=== PATIENT | female | born 1950 | race Caucasian/White ===

== ENCOUNTER → 2017-04-12 | Outpatient (CLI) | payer OTHER ==
--- NOTE | 2017-04-12 16:50 | BD ---
EXAMINATION TYPE: MG DEXA axial skeleton. DATE OF EXAM: 04/12/2017 COMPARISON: NONE CLINICAL HISTORY: 66-year-old female asymptomatic postmenopausal state Height: 5 4 1/2 IN Weight: 210 FRAX RISK QUESTIONS: Alcohol (3 or more units per day): NO Family History (Parent hip fracture): NO Glucocorticoids (More than 3mos): NO (Ex: prednisone, prednisolone, methylprednisolone, dexamethasone, and hydrocortisone). History of Fracture in Adulthood: YES Secondary Osteoporosis: 1. Type 1 Diabetes: NO 2. Hyperthyroidism: NO 3. Menopause before 45: NO 4. Malnutrition: NO 5. Chronic liver disease: NO Rheumatoid Arthritis: NO Current Tobacco Use: NO RISK FACTORS HISTORY OF: Spine Fracture: LUMBAR When: 5 YEARS AGO History of Wrist Fracture: LT WRIST When: 2015 Surgery to Spine/Hip(right/left)/Wrist (right/left): LT WRIST When: 2014 Family History of Osteoporosis: NO Active: YES Postmenopausal woman: AGE 56 MEDICATIONS: Additional Medications: NONE Additional History: EXAM MEASUREMENTS: Bone mineral densitometry was performed using the [employer] ([employer]) System. Bone mineral density as measured about the Lumbar spine is: ----- L1-L4(G/cm2): 1.101 T Score Values are as follows: ----- L2: -0.7 ----- L3: -0.6 ----- L4: -1.3 ----- L1-L4: -0.7 BASELINE Bone mineral density about the R hip (g/cm2): 0.790 Bone mineral density about the L hip (g/cm2): 0.827 T Score values are as follows: -----R Neck: -1.8 -----L Neck: -1.5 -----R Total: -0.5 -----L Total: -0.4 BASELINE IMPRESSION: Osteopenia (T Score between -2.5 and -1 as noted by T score values There is slightly increased risk of fracture and the patient may be considered for treatment. Re-Screen 2-5 years. NOTE: T-SCORE=SD OF THE YOUNG ADULT MEAN.
== END | disposition home or self-care (01) ==
LOC: RADBDWWP 07:24
PROVIDERS: ATTEND Family Medicine
DX: M85.80 Other specified disorders of bone density and structure, unspecified site (principal); Z78.0 Asymptomatic menopausal state
CPT/HCPCS: 77080

== ENCOUNTER 2018-05-03 11:53 | Emergency (ER) | payer OTHER, MEDICARE ==
--- NOTE | 2018-05-03 12:25 | ED ---
General Adult HPI - General Chief complaint: Abdominal Pain Stated complaint: Bowel problems Time Seen by Provider: 05/03/18 12:19 Source: patient, RN notes reviewed Mode of arrival: ambulatory Limitations: no limitations - History of Present Illness Initial comments: 67-year-old female with a past medical history of DVT, GERD presents to the emergency department for a chief complaint of left lower abdominal pain 3 days. Patient states pain has improved somewhat since it first started. Patient states she thought she had a urinary tract infection so went to the clinic and urine did not show infection. Patient states they were concerned for diverticulitis as sent her to the emergency department. Patient states her bowel movements have been normal and her last bowel movement was this morning, soft in consistency. She denies any melena or hematochezia. Patient denies any dysuria, urinary urgency, urinary frequency. Patient does have a history of appendectomy. No prior history of diverticulitis. Patient has no other complaints at this time including shortness of breath, chest pain, nausea or vomiting, headache, or visual changes. - Related Data Home Medications Medication Instructions Recorded Confirmed Atorvastatin [Lipitor] 10 mg PO HS 05/03/18 05/03/18 Previous Rx's Medication Instructions Recorded Ciprofloxacin HCl [Cipro] 500 mg PO Q12HR 10 Days tablet 05/03/18 metroNIDAZOLE [Flagyl] 500 mg PO TID 10 Days tab 05/03/18 Allergies Allergy/AdvReac Type Severity Reaction Status Date / Time steroids Allergy Nausea & Uncoded 05/03/18 11:57 Vomiting, "felt like a hangover" Review of Systems ROS Statement: Those systems with pertinent positive or pertinent negative responses have been documented in the HPI. ROS Other: All systems not noted in ROS Statement are negative. Past Medical History Past Medical History: Deep Vein Thrombosis (DVT), GERD/Reflux Additional Past Medical History / Comment(s): DVT leg 2002, hx. fx. back 7-8 yrs. ago History of Any Multi-Drug Resistant Organisms: None Reported Past Surgical History: Orthopedic Surgery, Tubal Ligation Additional Past Surgical History / Comment(s): arthroscopy knee, ORIF left wrist & ankle Past Anesthesia/Blood Transfusion Reactions: No Reported Reaction Past Psychological History: No Psychological Hx Reported Smoking Status: Never smoker Past Alcohol Use History: Occasional Past Drug Use History: None Reported - Past Family History Sister(s) Family Medical History: Cancer General Exam Limitations: no limitations General appearance: alert, in no apparent distress Head exam: Present: atraumatic, normocephalic, normal inspection Eye exam: Present: normal appearance, PERRL, EOMI. Absent: scleral icterus, conjunctival injection, periorbital swelling ENT exam: Present: normal exam, mucous membranes moist Neck exam: Present: normal inspection, full ROM. Absent: tenderness, meningismus, lymphadenopathy Respiratory exam: Present: normal lung sounds bilaterally. Absent: respiratory distress, wheezes, rales, rhonchi, stridor Cardiovascular Exam: Present: regular rate, normal rhythm, normal heart sounds. Absent: systolic murmur, diastolic murmur, rubs, gallop, clicks GI/Abdominal exam: Present: soft, tenderness (Tenderness noted to the left lower quadrant without rebound or guarding, no upper abdominal tenderness, no right lower quadrant tenderness, no suprapubic tenderness.), normal bowel sounds. Absent: distended, guarding, rebound, rigid Neurological exam: Present: alert, oriented X3, CN II-XII intact Psychiatric exam: Present: normal affect, normal mood Course Vital Signs 05/03/18 05/03/18 05/03/18 11:58 13:50 15:46 Temperature 98 F 98.2 F Pulse Rate 74 75 84 Respiratory 16 18 18 Rate Blood Pressure 148/93 141/82 151/82 O2 Sat by Pulse 98 98 97 Oximetry Medical Decision Making - Medical Decision Making 67-year-old female with a past medical history of DVT, GERD presents to the emergency department for a chief complaint of left lower abdominal pain 2 days. Patient states pain is improved somewhat since it first started. However she was seen today at urgent care and they were concerned for diverticulitis so sent her in. She denies fevers or chills. She denies noticing any blood in the stool. On exam patient does have left lower quadrant tenderness without rebound or guarding, no tenderness noted elsewhere. CBC and CMP are unremarkable. Urine does not show any evidence of infection. CT shows mild diverticulitis in the distal descending colon. Patient states she would like to try outpatient therapy. Patient was given Flagyl and Cipro by mouth in the emergency department. She was given a prescription for both. She was educated to consume a high-fiber diet. She will follow up with GI, referral given. She will return if she has any worsening symptoms or severe pain to his discussed with her. - Lab Data Result diagrams: 05/03/18 12:54 05/03/18 12:54 Lab Results 05/03/18 05/03/18 05/03/18 Range/Units 12:54 12:54 13:40 WBC 8.2 (3.8-10.6) k/uL RBC 4.66 (3.80-5.40) m/uL Hgb 13.7 (11.4-16.0) gm/dL Hct 42.1 (34.0-46.0) % MCV 90.3 (80.0-100.0) fL MCH 29.3 (25.0-35.0) pg MCHC 32.5 (31.0-37.0) g/dL RDW 13.1 (11.5-15.5) % Plt Count 355 (150-450) k/uL Neutrophils % 74 % Lymphocytes % 19 % Monocytes % 4 % Eosinophils % 2 % Basophils % 0 % Neutrophils # 6.1 (1.3-7.7) k/uL Lymphocytes # 1.6 (1.0-4.8) k/uL Monocytes # 0.3 (0-1.0) k/uL Eosinophils # 0.1 (0-0.7) k/uL Basophils # 0.0 (0-0.2) k/uL Sodium 140 (137-145) mmol/L Potassium 4.9 (3.5-5.1) mmol/L Chloride 105 (98-107) mmol/L Carbon Dioxide 27 (22-30) mmol/L Anion Gap 8 mmol/L BUN 18 H (7-17) mg/dL Creatinine 0.76 (0.52-1.04) mg/dL Est GFR (CKD-EPI)AfAm >90 (>60 ml/min/1.73 sqM) Est GFR (CKD-EPI)NonAf 83 (>60 ml/min/1.73 sqM) Glucose 96 (74-99) mg/dL Calcium 10.0 (8.4-10.2) mg/dL Total Bilirubin 0.6 (0.2-1.3) mg/dL AST 26 (14-36) U/L ALT 29 (9-52) U/L Alkaline Phosphatase 80 (38-126) U/L Total Protein 7.2 (6.3-8.2) g/dL Albumin 4.4 (3.5-5.0) g/dL Amylase 31 (30-110) U/L Lipase 58 (23-300) U/L Urine Color Light Yellow Urine Appearance Clear (Clear) Urine pH 6.5 (5.0-8.0) Ur Specific [place] 1.010 (1.001-1.035) Urine Protein Negative (Negative) Urine Glucose (UA) Negative (Negative) Urine Ketones 1+ H (Negative) Urine Blood Negative (Negative) Urine Nitrite Negative (Negative) Urine Bilirubin Negative (Negative) Urine Urobilinogen <2.0 (<2.0) mg/dL Ur Leukocyte Esterase Small H (Negative) Urine RBC <1 (0-5) /hpf Urine WBC 2 (0-5) /hpf Urine Mucus Rare H (None) /hpf Disposition Clinical Impression: Diverticulitis Disposition: HOME SELF-CARE Condition: Good Instructions: Diverticulitis (ED) Additional Instructions: Please take antibiotics as directed. Follow-up with GI in 1-2 days. Return to the emergency department for worsening symptoms. Prescriptions: Ciprofloxacin HCl [Cipro] 500 mg PO Q12HR 10 Days tablet metroNIDAZOLE [Flagyl] 500 mg PO TID 10 Days tab Is patient prescribed a controlled substance at d/c from ED?: No Referrals: Bobby Gamez MD [Primary Care Provider] - 1-2 days Arturo Lora MD [STAFF PHYSICIAN] - 1-2 days Time of Disposition: 15:25
[2018-05-03] MEDS ORDERED: SODIUM CHLORIDE 0.9% 1,000 ML IV STA (12:31)
[2018-05-03 13:22] LABS: Basophils % (A) 0 %; Eosinophils # (A) 0.1 k/uL (0-0.7); Eosinophils % (A) 2 %; HCT 42.1 % (34.0-46.0); HGB 13.7 gm/dL (11.4-16.0); Lymphocytes # (A) 1.6 k/uL (1.0-4.8); Lymphocytes % (A) 19 %; MCH 29.3 pg (25.0-35.0); MCHC 32.5 g/dL (31.0-37.0); MCV 90.3 fL (80.0-100.0); Monocytes # (A) 0.3 k/uL (0-1.0); Monocytes % (A) 4 %; Neutrophils # (A) 6.1 k/uL (1.3-7.7); Neutrophils % (A) 74 %; Platelet Count 355 k/uL (150-450); RBC 4.66 m/uL (3.80-5.40); RDW 13.1 % (11.5-15.5); WBC 8.2 k/uL (3.8-10.6)
[2018-05-03 13:36] LABS: Albumin 4.4 g/dL (3.5-5.0); Amylase 31 U/L (30-110); Anion Gap 8 mmol/L; Blood Urea Nitrogen 18 mg/dL (7-17); Carbon Dioxide 27 mmol/L (22-30); Chloride 105 mmol/L (98-107); Glucose 96 mg/dL (74-99); Lipase 58 U/L (23-300); Sodium 140 mmol/L (137-145); Total Bilirubin 0.6 mg/dL (0.2-1.3); Total Protein 7.2 g/dL (6.3-8.2)
[2018-05-03 13:44] LABS: ALT 29 U/L (9-52); AST 26 U/L (14-36); Potassium 4.9 mmol/L (3.5-5.1)
[2018-05-03 13:45] LABS: Alkaline Phosphatase 80 U/L (38-126)
[2018-05-03 14:00] VITALS: RESP 18
[2018-05-03 14:31] LABS: Appearance,Urine Clear (Clear); Bilirubin,Urine Negative (Negative); Blood,Urine Negative (Negative); Color,Urine Light Yellow; Glucose,Urine (UA) Negative (Negative); Ketones,Urine 1+ (Negative); Leukocyte Esterase,Urine Small (Negative); Mucus,Urine Rare /hpf; Nitrite,Urine Negative (Negative); PH, Urine 6.5 (5.0-8.0); Protein,Urine Negative (Negative); RBC,Urine <1 /hpf (0-5); Urobilinogen,Urine <2.0 mg/dL (<2.0); WBC,Urine 2 /hpf (0-5)
--- NOTE | 2018-05-03 14:37 | CT ---
EXAMINATION TYPE: CT abdomen pelvis w con DATE OF EXAM: 05/03/2018 COMPARISON: None INDICATION: Diverticulitis DLP: 791.4 mGycm, Automated exposure control for dose reduction was used. CONTRAST: 100 ml mL of Isovue 300. Study performed without Oral Contrast TECHNIQUE: Axial images were obtained from above the diaphragm to the pubic rami in the axial plane a t 5 mm thick sections. Reconstructed images are reviewed on the computer in the coronal plane. FINDINGS: Limited CT sections are obtained the lung bases. The lung bases are clear. CT ABDOMEN: Liver: Normal Spleen: Normal Pancreas: Normal Adrenal glands: The adrenal glands are normal. Gallbladder: Normal Kidneys: No masses are evident. No hydronephrosis is present. No cysts are present. Delayed images were obtained through the kidneys, which remain unremarkable. Aorta: Vascular calcification is within the aorta. Inferior vena cava: Normal. CT PELVIS: Some mild inflammatory changes adjacent to the distal descending colon. Correlate for mild diverticul itis. No suspicious abscess formation or phlegmon is evident. Additional diverticulosis within the si gmoid colon. There are loops of bowel which are incompletely distended or lack oral contrast limiting their evaluation. Appendix: Surgically absent. Urinary bladder: Normal. Genitourinary structures: Uterus is unremarkable. Adnexal regions are normal. Osseous structures: No suspicious lytic or sclerotic lesions. IMPRESSIONS: 1. Mild diverticulitis distal descending colon.
[2018-05-03] MEDS ORDERED: CIPROFLOXACIN HCL 500 MG TAB PO STA (15:21)
[2018-05-03] MEDS ORDERED: metroNIDAZOLE 500 MG TAB PO STA (15:21)
[2018-05-03 15:49] VITALS: BP 151/82; PULSE 84; TEMP 98.2
== END 2018-05-03 15:49 | disposition home or self-care (01) ==
LOC: EC 11:53
DX: K57.32 Diverticulitis of large intestine without perforation or abscess without bleeding (principal); Z88.8 Allergy status to other drugs, medicaments and biological substances; Z79.899 Other long term (current) drug therapy; Z90.49 Acquired absence of other specified parts of digestive tract
CPT/HCPCS: 36415; 80053; 82150; 83690; 85025; 81001; 87040; 74177; 99284; 96360; 96361 ×2; Q9967

== ENCOUNTER 2018-06-06 12:06 | Day surgery (SDC) | payer MEDICARE, OTHER ==
[2018-06-01 14:00] VITALS: BMI 29.9
[~2018-06-06 12:06] MED LIST: LACTATED RINGERS 1,000 ML IV SCH; LIDOCAINE 1% 20 ML VIAL (10MG/ML) FOR IV START INTRADERMA PRN
[2018-06-06 12:42] VITALS: RESP 16; TEMP 98.3
[2018-06-06] MEDS ORDERED: PROPOFOL 10 MG/ML 20 ML VIAL IV ONE (13:00)
[2018-06-06] MEDS ORDERED: LIDOCAINE 1% INJ 10MG/ML (20 ML MDV) ONE (13:00)
--- NOTE | 2018-06-06 13:29 | P.PCN ---
Date of Procedure: 06/06/18 Procedure(s) Performed: Procedure: Total colonoscopy. Preoperative diagnosis: History of diverticulitis. Postoperative diagnosis: 1. Diverticulosis with no evidence of acute diverticulitis or strictures. 2. Poor preparation but no obvious polyps or tumors. Preparation: HalfLytely prep. Sedation: Was provided by anesthesia. Brief clinical history: The patient is a 67-year-old female who is scheduled for this evaluation because of recent episodes of diverticulitis. She had prior colonoscopies at age 51 and 61. This evaluation is to rule out neoplasia or complicated diverticular disease. Procedure: With the patient on her left lateral decubitus position and after informed consent and adequate sedation, the perianal area was inspected and it did not show any fissures or fistulas. There were no masses felt on digital rectal examination. The Olympus CFH 190L video colonoscope was then inserted in the rectum in the usual fashion and advanced to the cecum. Unfortunately, the preparation was poor. Multiple diverticular orifices were seen scattered along the length of the bowel more on the left side with no evidence of acute diverticulitis or strictures. The mucosa appeared healthy. There were no obvious polyps or tumors. The poor preparation would preclude identifying small polyps or superficial pathology. I retroflexed the endoscope in the rectum before the endoscope was withdrawn. The patient tolerated the procedure well. Plan: The patient was reassured. Discussed dietary measures. Because of the poor preparation today, I suggested that we stay with the schedule for repeat colonoscopy in 3-4 years.
[2018-06-06 13:44] VITALS: BP 137/73; PULSE 64
== END 2018-06-06 14:07 | disposition home or self-care (01) ==
LOC: ORWHC2ENDO 12:06
DX: K57.30 Diverticulosis of large intestine without perforation or abscess without bleeding (principal); Z87.19 Personal history of other diseases of the digestive system; K21.9 Gastro-esophageal reflux disease without esophagitis; E78.5 Hyperlipidemia, unspecified; Z86.718 Personal history of other venous thrombosis and embolism; Z88.8 Allergy status to other drugs, medicaments and biological substances; Z79.82 Long term (current) use of aspirin; Z79.899 Other long term (current) drug therapy
CPT/HCPCS: 45378; J2001; J2704

== ENCOUNTER 2024-04-04 08:19 | Day surgery (SDC) | payer MEDICARE, OTHER ==
[2024-03-31 15:53] VITALS: BMI 30.1
[2024-04-04 09:03] VITALS: RESP 16; TEMP 98
[2024-04-04] MEDS: IV FLUID CONTINUATION 1,000 ML IV ONE (09:33)
[2024-04-04] MEDS: LACTATED RINGERS 1,000 ML IV SCH (09:34)
[2024-04-04] MEDS ORDERED: PROPOFOL 10 MG/ML 20 ML VIAL IV ONE (09:52)
--- NOTE | 2024-04-04 10:15 | P.PCN ---
Date of Procedure: 04/04/24 Procedure(s) Performed: BRIEF HISTORY: Patient is a 73-year-old pleasant white female scheduled for an elective colonoscopy as a part of screening for colon cancer. PROCEDURE PERFORMED: Colonoscopy. PREOPERATIVE DIAGNOSIS: Screening for colon cancer. IV sedation per Anesthesia. PROCEDURE: After informed consent was obtained, the patient, was brought into the endoscopy unit. IV sedation was administered by Anesthesia under continuous monitoring. Digital rectal examination was normal. Initially the Olympus CF-160 flexible video colonoscope was then inserted in the rectum, gradually advanced into the cecum without any difficulty. Careful examination was performed as the scope was gradually being withdrawn. Ileocecal valve and the appendiceal orifice were visualized and appeared normal. Prep was excellent. Mucosa of the cecum, ascending colon, transverse colon, descending colon, sigmoid colon, and rectum appeared normal. Scattered left-sided diverticula retroflexion was performed in the rectum and no lesions were seen. The patient tolerated the procedure well. IMPRESSION: Normal-appearing colon from rectum to cecum with no evidence of colorectal neoplasia. Scattered left-sided diverticulosis. RECOMMENDATIONS: Findings of this examination were discussed with the patient as well as her family. She was advised to have repeat screening colonoscopy in 10 years..
[2024-04-04 10:33] VITALS: BP 162/90; PULSE 51
== END 2024-04-04 10:50 | disposition home or self-care (01) ==
LOC: ORWHC2ENDO 08:19
PROVIDERS: ATTEND Internal Medicine Gastroenterology
DX: Z12.11 Encounter for screening for malignant neoplasm of colon (principal); K57.30 Diverticulosis of large intestine without perforation or abscess without bleeding; E78.5 Hyperlipidemia, unspecified; K21.9 Gastro-esophageal reflux disease without esophagitis; M54.50 Low back pain, unspecified; R41.3 Other amnesia; Z88.8 Allergy status to other drugs, medicaments and biological substances; Z79.82 Long term (current) use of aspirin
CPT/HCPCS: J2704; G0121; 45378

== ENCOUNTER 2024-11-09 17:56 | Inpatient (IN) | payer MEDICARE ==
--- NOTE | 2024-11-09 18:15 | ED ---
General Adult HPI - General Chief complaint: Neuro Symptoms/Deficit Stated complaint: cant talk Time Seen by Provider: 11/09/24 18:02 Source: patient, family, RN notes reviewed Mode of arrival: ambulatory Limitations: no limitations - History of Present Illness Initial comments: Patient is a 74-year-old female with history of Alzheimer's with concerns for difficulty talking. Symptoms were noticed to half an hour prior to arrival by when he came in from the garage. Patient last known to be normal at 5 PM. Patient had difficulty talking. Patient seemed off balance when she tried to get up. No history of similar symptoms previously. Patient is not on blood thinners. Speech was garbled. Speech has improved since that time however not returned to normal. - Related Data Home Medications Medication Instructions Recorded Confirmed Aspirin 81 mg PO DAILY 06/01/18 04/04/24 Allergies Allergy/AdvReac Type Severity Reaction Status Date / Time steroids Allergy Nausea & Uncoded 11/09/24 18:01 Vomiting, "felt like a hangover" Review of Systems ROS Statement: Those systems with pertinent positive or pertinent negative responses have been documented in the HPI. ROS Other: All systems not noted in ROS Statement are negative. Constitutional: Denies: fever Eyes: Denies: eye pain ENT: Denies: ear pain Respiratory: Denies: dyspnea Neurological: Reports: as per HPI. Denies: headache Past Medical History Past Medical History: Deep Vein Thrombosis (DVT), GERD/Reflux, Hyperlipidemia Additional Past Medical History / Comment(s): DVT leg 2002, hx. fx. back 7-8 yrs. ago, states patient has memory issues for last couple years, but not diagnosed with anything. History of Any Multi-Drug Resistant Organisms: None Reported Past Surgical History: Orthopedic Surgery, Tubal Ligation Additional Past Surgical History / Comment(s): arthroscopy knee, ORIF left wrist & ankle Past Anesthesia/Blood Transfusion Reactions: No Reported Reaction, Motion Sickness Additional Past Anesthesia/Blood Transfusion Reaction / Comment(s): no blood transfusion Past Psychological History: No Psychological Hx Reported Smoking Status: Never smoker Past Alcohol Use History: Occasional Past Drug Use History: None Reported - Past Family History Sister(s) Family Medical History: Cancer Additional Family Medical History / Comment(s): breast General Exam Limitations: no limitations General appearance: alert, in no apparent distress Head exam: Present: atraumatic Eye exam: Present: normal appearance, PERRL, EOMI ENT exam: Present: normal oropharynx Neck exam: Present: normal inspection Respiratory exam: Present: normal lung sounds bilaterally Cardiovascular Exam: Present: regular rate, normal rhythm GI/Abdominal exam: Present: soft. Absent: tenderness Extremities exam: Present: normal inspection Neurological exam: Present: alert, CN II-XII intact Expanded Neurological exam: Present: protecting the airway Patient oriented to: Present: person. Absent: place ( states normal), time ( states likely normal) Cranial nerves: EOM's Intact: Normal, Nystagmus: Normal Sensory exam: Upper Extremity Light Touch: Normal, Lower Extremity Light Touch: Normal Motor strength exam: RUE: 5, LUE: 5, RLE: 5, LLE: 5 Eye Response: (4) open spontaneously Motor Response: (6) obeys commands Verbal Response: (5) oriented Psychiatric exam: Present: normal affect, normal mood Skin exam: Present: normal color Course Vital Signs 11/09/24 11/09/24 11/09/24 17:58 18:13 18:43 Temperature 98.0 F 97.9 F 97.9 F Pulse Rate 75 60 60 Respiratory 18 16 16 Rate Blood Pressure 114/75 135/82 134/74 O2 Sat by Pulse 95 99 97 Oximetry 11/09/24 18:57 Temperature 97.5 F L Pulse Rate 58 L Respiratory 16 Rate Blood Pressure 125/62 O2 Sat by Pulse 98 Oximetry EKG Findings - EKG Results: EKG: interpreted by ERMD (Left axis. Poor R wave progression. LVH criteria.), sinus rhythm, normal ST/T Medical Decision Making - Medical Decision Making [address] Montero. Patient is felt not to be a candidate for tenecteplase secondary to improvement of symptoms and mild NIH. Risks felt to outweigh the benefits. Was pt. sent in by a medical professional or institution (, PA, FOXER, urgent care, hospital, or fdc...) When possible be specific @ -No Did you speak to anyone other than the patient for history (EMS, parent, family, police, friend...)? What history was obtained from this source @ - is present helps provide history as patient has speech difficulty and has Alzheimer's Did you review nursing and triage notes (agree or disagree)? Why? @ -I reviewed and agree with nursing and triage notes Were old charts reviewed (outside hosp., previous admission, EMS record, old EKG, old radiological studies, urgent care reports/EKG's, fdc records)? Report findings @ -No old charts were reviewed Differential Diagnosis (chest pain, altered mental status, abdominal pain women, abdominal pain men, vaginal bleeding, weakness, fever, dyspnea, syncope, headache, dizziness, GI bleed, back pain, seizure, CVA, palpatations, mental health, musculoskeletal)? @ -Differential Weakness: Hypoglycemia, shock, sepsis, hyponatremia, anemia, infection, CT, ETOH, adverse medicine reaction, overdose, stroke, this is not meant to be an all-inclusive list. EKG interpreted by me (3pts min.). @ -As above X-rays interpreted by me (1pt min.). @ -Chest x-ray does not reveal acute abnormality CT interpreted by me (1pt min.). @ -CT scan of the brain without acute abnormality U/S interpreted by me (1pt. min.). @ -None done What testing was considered but not performed or refused? (CT, X-rays, U/S, labs)? Why? @ -None What meds were considered but not given or refused? Why? @ -None Did you discuss the management of the patient with other professionals (professionals i.e. , PA, FOXER, lab, RT, psych nurse, licensed master social worker, impregnating machine operator, teacher, fire management officer, leather case finisher)? Give summary @ -Case discussed with Dr. Sharp will admit covering Dr. Milligan 9 Was smoking cessation discussed for >3mins.? @ -No Was critical care preformed (if so, how long)? @ -No Were there social determinants of health that impacted care today? How? (Homelessness, low income, unemployed, alcoholism, drug addiction, transporta tion, low edu. Level, literacy, decrease access to med. care, care home, rehab)? @ -No Was there de-escalation of care discussed even if they declined (Discuss DNR or withdrawal of care, Hospice)? DNR status @ -No What co-morbidities impacted this encounter? (DM, HTN, Smoking, COPD, CAD, Cancer, CVA, ARF, Chemo, Hep., AIDS, mental health diagnosis, sleep apnea, morbid obesity)? @ -None Was patient admitted / discharged? Hospital course, mention meds given and route, prescriptions, significant lab abnormalities, going to OR and other pertinent info. @ -Patient presents with acute stroke symptoms. Symptoms are improved with only mild speech difficulty on evaluation. Original head CT unremarkable. Patient to be admitted with neuro consult. Patient and family updated. Admission orders written. Undiagnosed new problem with uncertain prognosis? @ -No Drug Therapy requiring intensive monitoring for toxicity (Heparin, Nitro, Insulin, Cardizem)? @ -No Were any procedures done? @ -No Diagnosis/symptom? @ -CVA Acute, or Chronic, or Acute on Chronic? @ -Acute Uncomplicated (without systemic symptoms) or Complicated (systemic symptoms)? @ -Default Side effects of treatment? @ -No Exacerbation, Progression, or Severe Exacerbation? @ -No Poses a threat to life or bodily function? How? (Chest pain, USA, CT, pneumonia, PE, COPD, DKA, ARF, appy, cholecystitis, CVA, Diverticulitis, Homicidal, Suicidal, threat to staff... and all critical care pts) @ -Threat to neurological function - Lab Data Result diagrams: 11/09/24 18:27 11/09/24 18:27 Lab Results 11/09/24 11/09/24 11/09/24 Range/Units 18:27 18:27 18:27 WBC 6.01 (4.50-10.00) 10*3/uL RBC 4.66 (4.10-5.20) 10*6/uL Hgb 14.4 (12.0-15.0) g/dL Hct 42.7 (37.2-46.3) % MCV 91.6 (80.0-97.0) fL MCH 30.9 (27.0-32.0) pg MCHC 33.7 (32.0-37.0) g/dL Plt Count 300 (140-440) 10*3/uL MPV 9.8 (9.5-12.2) fL Immature Gran % (Auto) 0.5 % Neutrophils % 67.9 % Lymphocytes % 23.6 % Monocytes % 6.3 % Eosinophils % 1.0 % Basophils % 0.7 % Immature Gran # 0.03 (0.00-0.04) 10*3/uL Neutrophils # 4.08 (1.80-7.70) 10*3/uL Lymphocytes # 1.42 (0.90-5.00) 10*3/uL Monocytes # 0.38 (0.20-1.00) 10*3/uL Eosinophils # 0.06 (0.04-0.35) 10*3/uL Basophils # 0.04 (0.00-0.10) 10*3/uL PT 10.3 (10.0-12.5) sec INR 0.9 (<1.2) APTT 21.5 L (22.0-30.0) sec Sodium 136 L (137-145) mmol/L Potassium 4.0 (3.5-5.1) mmol/L Chloride 101 (98-107) mmol/L Carbon Dioxide 24 (22-30) mmol/L Anion Gap 11 mmol/L BUN 18 H (7-17) mg/dL Creatinine 1.01 (0.52-1.04) mg/dL Est GFR (CKD-EPI)AfAm 64 (>60 ml/min/1.73 sqM) Est GFR (CKD-EPI)NonAf 55 (>60 ml/min/1.73 sqM) Glucose 151 H (74-99) mg/dL Calcium 10.1 (8.4-10.2) mg/dL Total Bilirubin 0.4 (0.2-1.3) mg/dL AST 24 (14-36) U/L ALT 17 (4-34) U/L Alkaline Phosphatase 85 (38-126) U/L Creatine Kinase 67 (30-135) U/L Troponin I (0.000-0.034) ng/mL Total Protein 6.7 (6.3-8.2) g/dL Albumin 4.4 (3.5-5.0) g/dL 11/09/24 Range/Units 18:27 WBC (4.50-10.00) 10*3/uL RBC (4.10-5.20) 10*6/uL Hgb (12.0-15.0) g/dL Hct (37.2-46.3) % MCV (80.0-97.0) fL MCH (27.0-32.0) pg MCHC (32.0-37.0) g/dL Plt Count (140-440) 10*3/uL MPV (9.5-12.2) fL Immature Gran % (Auto) % Neutrophils % % Lymphocytes % % Monocytes % % Eosinophils % % Basophils % % Immature Gran # (0.00-0.04) 10*3/uL Neutrophils # (1.80-7.70) 10*3/uL Lymphocytes # (0.90-5.00) 10*3/uL Monocytes # (0.20-1.00) 10*3/uL Eosinophils # (0.04-0.35) 10*3/uL Basophils # (0.00-0.10) 10*3/uL PT (10.0-12.5) sec INR (<1.2) APTT (22.0-30.0) sec Sodium (137-145) mmol/L Potassium (3.5-5.1) mmol/L Chloride (98-107) mmol/L Carbon Dioxide (22-30) mmol/L Anion Gap mmol/L BUN (7-17) mg/dL Creatinine (0.52-1.04) mg/dL Est GFR (CKD-EPI)AfAm (>60 ml/min/1.73 sqM) Est GFR (CKD-EPI)NonAf (>60 ml/min/1.73 sqM) Glucose (74-99) mg/dL Calcium (8.4-10.2) mg/dL Total Bilirubin (0.2-1.3) mg/dL AST (14-36) U/L ALT (4-34) U/L Alkaline Phosphatase (38-126) U/L Creatine Kinase (30-135) U/L Troponin I <0.012 (0.000-0.034) ng/mL Total Protein (6.3-8.2) g/dL Albumin (3.5-5.0) g/dL Disposition Clinical Impression: Cerebrovascular accident (CVA) Disposition: ADMITTED IP TO THIS HOSP Is patient prescribed a controlled substance at d/c from ED?: No Referrals: None,Stated [REFERRING] - 1-2 days Time of Disposition: 19:30
[2024-11-09 18:42] LABS: Basophils # (A) 0.04 10*3/uL (0.00-0.10); Basophils % (A) 0.7 %; Eosinophils # (A) 0.06 10*3/uL (0.04-0.35); HCT 42.7 % (37.2-46.3); HGB 14.4 g/dL (12.0-15.0); Lymphocytes # (A) 1.42 10*3/uL (0.90-5.00); Lymphocytes % (A) 23.6 %; MCH 30.9 pg (27.0-32.0); MCHC 33.7 g/dL (32.0-37.0); MCV 91.6 fL (80.0-97.0); Mean Platelet Volume 9.8 fL (9.5-12.2); Monocytes # (A) 0.38 10*3/uL (0.20-1.00); Monocytes % (A) 6.3 %; Neutrophils # (A) 4.08 10*3/uL (1.80-7.70); Neutrophils % (A) 67.9 %; Platelet Count 300 10*3/uL (140-440); RBC 4.66 10*6/uL (4.10-5.20); WBC 6.01 10*3/uL (4.50-10.00)
--- NOTE | 2024-11-09 18:43 | CT ---
EXAMINATION TYPE: CT brain wo con CT DLP: 1101.6 mGycm, Automated exposure control for dose reduction was used. DATE OF EXAM: 11/09/2024 6:34 PM COMPARISON: None. CLINICAL INDICATION:Female, 74 years old with history of Neuro deficit, acute, stroke suspected, alte red mental status TECHNIQUE: Brain: Multiple axial CT images of the brain were obtained without IV contrast. . Coronal and sagitta l reformats reviewed. FINDINGS: Brain: Extra-axial spaces: No abnormal extra-axial fluid collections. Ventricular system: Within normal limits Cerebral parenchyma: Cerebral atrophy. No acute intraparenchymal hemorrhage or mass effect. The haley -white junction is well differentiated. Scattered and confluent hypoattenuating areas are seen within the periventricular and subcortical white matter. Cerebellum: Unremarkable. Mass effect: No evidence of midline shift. Intracranial vasculature: Atherosclerotic calcifications of the intracranial vessels. Soft tissues: Normal. Calvarium/osseous structures: No depressed skull fracture. Paranasal sinuses and mastoid air cells: The mastoid air cells are clear. Minimal mucosal thickening of the right ethmoid sinus. Mucous retention cyst or polyp measuring up to 8 mm within the right sphe noid sinus. The remaining paranasal sinuses are clear. Aplasia of the bilateral frontal sinuses. Visualized orbits: Bilateral aphakia IMPRESSION: 1. No acute intracranial process. 2. Nonspecific white matter changes, likely secondary to chronic small vessel ischemic disease. [facility], , 11/09/2024 6:40 PM
[2024-11-09 19:00] LABS: ALT 17 U/L (4-34); AST 24 U/L (14-36); African American GFR (CKD) 64 (>60 ml/min/1.73 sqM); Albumin 4.4 g/dL (3.5-5.0); Alkaline Phosphatase 85 U/L (38-126); Anion Gap 11 mmol/L; Blood Urea Nitrogen 18 mg/dL (7-17); Calcium 10.1 mg/dL (8.4-10.2); Carbon Dioxide 24 mmol/L (22-30); Chloride 101 mmol/L (98-107); Creatine Kinase 67 U/L (30-135); Glucose 151 mg/dL (74-99); Non-African American GFR(CKD) 55 (>60 ml/min/1.73 sqM); Sodium 136 mmol/L (137-145); Total Bilirubin 0.4 mg/dL (0.2-1.3); Total Protein 6.7 g/dL (6.3-8.2)
--- NOTE | 2024-11-09 19:04 | XR ---
EXAMINATION TYPE: XR chest 2V DATE OF EXAM: 11/09/2024 6:44 PM COMPARISON: None TECHNIQUE: XR chest 2V Frontal and lateral views of the chest. CLINICAL INDICATION:Female, 74 years old with history of altered mental status; FINDINGS: Patient is rotated which limits evaluation. Lungs/Pleura: There is no evidence of pleural effusion, focal consolidation, or pneumothorax. Pulmonary vascularity: Unremarkable. Heart/mediastinum: Cardiomediastinal silhouette is unremarkable. Musculoskeletal: Multiple level degenerative disc disease changes seen throughout the spine. IMPRESSION: No acute cardiopulmonary disease/process. [facility], , 11/09/2024 7:02 PM
[2024-11-09 19:05] LABS: INR 0.9 (<1.2); Prothrombin Time 10.3 sec (10.0-12.5)
--- NOTE | 2024-11-09 19:10 | CT ---
EXAMINATION TYPE: CT angio head neck CT DLP: 381.7 mGycm, Automated exposure control for dose reduction was used. DATE OF EXAM: 11/09/2024 6:53 PM COMPARISON: CT brain 11/09/2024. CLINICAL INDICATION:Female, 74 years old with history of Neuro deficit, acute, stroke suspected; PHH, altered mental status TECHNIQUE: Axially acquired helical CT angiogram of the head and neck was obtained with contrast util izing 75 cc of Isovue-370 administered intravenously. Axial images are supplemented with 3D reconstru ctions which were post-processed at an independent workstation. NASCET criteria used. MIP imaging performed on a separate workstation and submitted for review. FINDINGS: CTA HEAD: No evidence of acute intracranial hemorrhage, mass effect, or midline shift. The ventricles, sulci, a nd cisterns are unremarkable. The visualized portions of the internal carotid arteries, middle cerebral arteries, anterior cerebral arteries, and posterior cerebral arteries are patent. The basilar and vertebral arteries are patent. CTA NECK: Right Carotid System: The common carotid artery and external carotid artery are patent. The carotid bifurcation demonstrate s no evidence of hemodynamically significant stenosis. The remaining portions of the internal carotid artery demonstrate normal size without significant narrowing. Left Carotid System: The common carotid artery and external carotid artery are patent. . The carotid bifurcation demonstra laura no evidence of hemodynamically significant stenosis. Minimal atherosclerotic calcification at the proximal internal carotid artery. The remaining portions of the internal carotid artery demonstrate normal size without significant narrowing. Vertebral arteries are patent and codominant without evidence hemodynamically significant stenosis. There is a three-vessel aortic arch. The origins of the great vessels are patent. No evidence of hemo dynamically significant stenosis. Mild multilevel degenerative disc disease of the cervical spine. IMPRESSION: 1. No evidence of dissection of the cervical internal carotid arteries or vertebral arteries or any e vidence of significant stenosis at the carotid bifurcations. 2. No evidence of high-grade stenosis or intracranial aneurysm. [facility], , 11/09/2024 7:08 PM
[2024-11-09 19:19] LABS: Partial Thromboplastin Time 21.5 sec (22.0-30.0)
--- NOTE | 2024-11-09 20:59 | P.HPIM ---
History of Present Illness H&P Date: 11/09/24 Chief Complaint: Aphasia Patient is a 74 year old female with DVT, GERD, hyperlipidemia presented to the ED with difficulty talking. Patient's reported that he noticed the symptoms when he came in from the garage about half an hour prior to arrival to the hospital. Patient's last known normal was at 5 PM. She had difficulty talking and she also seemed off balance when she tried to get up. Her speech has improved since that time however it has not returned to normal. Patient is not on any blood thinners at the moment. ED physician discussed case with Dr. Montero and Patient was felt not to be a candidate for tenecteplase secondary to improvement of symptoms and mild NIH, Risks felt to outweigh the benefits. At the time of this interview patient is confused and is not a reliable historian. She has underlying dementia. Denies fever, chills, shortness of breath, cough, chest pain, palpitations, abdominal pain, nausea, vomiting, hematuria, dysuria, hematochezia, melena, headache, numbness, tingling, blurred vision, double vision. ED documentation reviewed. In the ED patient was treated with aspirin and normal saline. Vitals on admission T 98 F, UT 75 bpm, RR 18, BP 114/75, SpO2 95% on room air Most recent vital T 97.5 F, UT 60 bpm, RR 16, BP 129/60, SpO2 97% on room air EKG independently interpreted as sinus rhythm, poor R wave progression, rate 74 bpm, QTc 434 ms Chest x-ray shows no acute cardiopulmonary disease/process Brain CT shows no acute intracranial process, nonspecific white matter changes likely secondary to chronic small vessel ischemic disease CT angiography head and neck shows no evidence of dissection of the cervical internal carotid arteries or vertebral arteries or any evidence of significant stenosis at the carotid bifurcation, no evidence of high-grade stenosis or intracranial aneurysm Labs on admission show WBC 6.01, hemoglobin 14.4, platelet 300, INR 0.9, sodium 136, potassium 4.0, creatinine 1.01, BUN 18, glucose 151, troponin I <0.012, CK 67 Review of systems: Pertinent positives and negatives as discussed in HPI, a complete review of systems was performed and all other systems are negative. Physical examination: Vital signs reviewed General: nontoxic, no distress, appears at stated age Derm: warm, dry, intact Head: atraumatic, normocephalic, symmetric Eyes: EOMI, anicteric sclera Mouth: no lip lesion, mucus membranes moist Cardiovascular: S1 S2 reg, no murmur Lungs: CTA bilateral, no rhonchi, no rales, no accessory muscle use Abdominal: soft, non-tender to palpation Extremities: No cyanosis, clubbing Neuro: Alert, Oriented to person only, expressive and receptive aphasia, strength 4/5 in all 4 extremities, abnormal finger to nose test and heel to smallwood test on left side Assessment/Plan: Patient is a 74 year old female with DVT, GERD, hyperlipidemia presented to the ED with difficulty talking. Patient admitted to internal medicine service. Active: #. Cerebrovascular accident ABCD2 score [address] shows no acute intracranial process, nonspecific white matter changes likely secondary to chronic small vessel ischemic disease CT angiography head and neck shows no evidence of dissection of the cervical internal carotid arteries or vertebral arteries or any evidence of significant stenosis at the carotid bifurcation, no evidence of high-grade stenosis or intracranial aneurysm Tenecteplase not administered Received Aspirin 325 mg in the ED Aspirin 81 mg p.o. daily and atorvastatin 40 mg p.o. at bedtime Obtain lipid panel, A1c Obtain echocardiogram Neurochecks Q4HR Permissive hypertension Continue telemetry monitoring Neurology consulted PT, OT, speech therapy and case management consulted F: 0.9 normal saline at 100 mL/h E: Replete as required N: NPO A: Bed rest DVT prophylaxis: SCD The patient is admitted with an anticipated more than 2 midnight stay for evaluation of dysarthria CODE STATUS: FULL CODE Discussed with: Patient Anticipated discharge place: Pending clinical course Dictation was produced using [employer] dictation software. please excuse any grammatical, word or spelling errors. Nik Razo MD PGY-1 IM Attestation : Patient seen and examined. Agree with above assessment and plan. Patient is a 74-year-old female patient presenting with her . History of dementia. Most of the history was obtained from the . reported that he noticed the symptoms when he came in from the garage about half an hour prior to arrival to the hospital. Patient's last known normal was at 5 PM. She had difficulty talking and she also seemed off balance when she tried to get up. Her speech has improved since that time however it has not returned to normal . Her symptoms are improving . She is still slightly aphasic. CTA of the head and neck was not remarkable. Case was discussed with intervention and no indication for intervention or tPA . Will admit for neurology evaluation, brain MRI, permissive hypertension, neurocheck every 4 hours, PT OT, speech therapy, continue aspirin and statin therapy and obtain echocardiogram. Time spent : 55 min Past Medical History Past Medical History: Deep Vein Thrombosis (DVT), GERD/Reflux, Hyperlipidemia Additional Past Medical History / Comment(s): DVT leg 2002, hx. fx. back 7-8 yrs. ago, states patient has memory issues for last couple years, but not diagnosed with anything. History of Any Multi-Drug Resistant Organisms: None Reported Past Surgical History: Orthopedic Surgery, Tubal Ligation Additional Past Surgical History / Comment(s): arthroscopy knee, ORIF left wrist & ankle Past Anesthesia/Blood Transfusion Reactions: No Reported Reaction, Motion Sickness Additional Past Anesthesia/Blood Transfusion Reaction / Comment(s): no blood transfusion Past Psychological History: No Psychological Hx Reported Smoking Status: Never smoker Past Alcohol Use History: Occasional Past Drug Use History: None Reported - Past Family History Sister(s) Family Medical History: Cancer Additional Family Medical History / Comment(s): breast Medications and Allergies Home Medications Medication Instructions Recorded Confirmed Type Aspirin 81 mg PO DAILY 06/01/18 11/09/24 History Allergies Allergy/AdvReac Type Severity Reaction Status Date / Time steroids Allergy Nausea & Uncoded 11/09/24 19:38 Vomiting, "felt like a hangover" Physical Exam Vitals: Vital Signs Temp Pulse Resp BP Pulse Ox 11/09/24 18:57 97.5 F L 58 L 16 125/62 98 11/09/24 18:43 97.9 F 60 16 134/74 97 11/09/24 18:13 97.9 F 60 16 135/82 99 11/09/24 17:58 98.0 F 75 18 114/75 95 Intake and Output 11/09/24 11/09/24 11/09/24 06:59 14:59 22:59 Other: Weight 86.183 kg Results CBC & Chem 7: 11/09/24 18:27 11/09/24 18:27 Labs: Abnormal Lab Results - Last 24 Hours (Table) 11/09/24 11/09/24 Range/Units 18:27 18:27 APTT 21.5 L (22.0-30.0) sec Sodium 136 L (137-145) mmol/L BUN 18 H (7-17) mg/dL Glucose 151 H (74-99) mg/dL
[2024-11-09] MEDS: ATORVASTATIN 40 MG TAB PO SCH (22:41)
[2024-11-09] MEDS: ASPIRIN 325 MG TAB PO STA (22:41)
[2024-11-09] MEDS: SODIUM CHLORIDE 0.9% 1,000 ML IV SCH (22:43)
[2024-11-10 05:36] VITALS: TEMP 97.7
[2024-11-10 07:37] VITALS: BP 143/87; PULSE 69; RESP 18
[2024-11-10 07:45] LABS: African American GFR (CKD) >90 (>60 ml/min/1.73 sqM); Anion Gap 9 mmol/L; Blood Urea Nitrogen 12 mg/dL (7-17); Calcium 9.9 mg/dL (8.4-10.2); Carbon Dioxide 26 mmol/L (22-30); Chloride 107 mmol/L (98-107); Glucose 102 mg/dL (74-99); Non-African American GFR(CKD) 87 (>60 ml/min/1.73 sqM); Potassium 4.1 mmol/L (3.5-5.1); Sodium 142 mmol/L (137-145)
[2024-11-10 08:31] LABS: HCT 46.8 % (37.2-46.3); HGB 15.7 g/dL (12.0-15.0); MCH 30.5 pg (27.0-32.0); MCHC 33.5 g/dL (32.0-37.0); MCV 90.9 fL (80.0-97.0); Mean Platelet Volume 10.7 fL (9.5-12.2); Platelet Count 187 10*3/uL (140-440); RBC 5.15 10*6/uL (4.10-5.20); RDW 13.2 % (11.5-14.5)
[2024-11-10] MEDS ORDERED: ASPIRIN 81 MG PO SCH (09:00)
[2024-11-10] MEDS ORDERED: ASPIRIN 325 MG TAB PO SCH (09:00)
[2024-11-10 10:04] LABS: Magnesium 2.3 mg/dL (1.6-2.3)
[2024-11-10 10:43] LABS: Chol/HDL Ratio 4.05 Ratio; LDL Cholesterol,Calculated 156.2 mg/dL (0.0-131.0)
--- NOTE | 2024-11-10 11:02 | P.DS ---
Providers Date of admission: 11/09/24 19:30 Expected date of discharge: 11/10/24 Attending physician: Alejandro Bueno MD Consults: 11/09/24 19:31 Consult Physician Urgent Consulting Provider: Alejandro Grimaldo Consult Reason/Comments: cva Do you want consulting provider notified?: Yes Primary care physician: [facility] Course: RECEIVED NOTIFICATION FROM ED STAFF AT 9:43 am THAT PATIENT'S SIGNED HER OUT AGAINST MEDICAL ADVICE STATING THAT SHE IS AT HER BASELINE MENTATION SHE HAS BEEN FOR THE LAST 5 YEARS. I DID NOT SEE OR ASSESS THIS PATIENT DURING THIS HOSPITALIZATION. PT WAS ALREADY GONE FROM ROOM AT 10:03 AM WHEN I ARRIVED TO BEDSIDE. Patient Condition at Discharge: Undetermined Plan - Discharge Summary New Discharge Prescriptions: No Action Aspirin 81 mg PO DAILY Discharge Medication List Aspirin 81 mg PO DAILY 06/01/18 [History] Follow up Appointment(s)/Referral(s): None,Stated [REFERRING] - 1-2 days Discharge Disposition: LEFT AGAINST MEDICAL ADVICE
== END 2024-11-10 10:08 | disposition left against medical advice (07) | DRG 93 ==
LOC: SUPCPDRO 17:56 → EC 17:56 → 6NMEDSUR 19:30 → OBSVTOIN 19:30 → 3SCARD 20:06
PROVIDERS: ADMIT Student in an Organized Health Care Education/Training Program; ATTEND Student in an Organized Health Care Education/Training Program
DX: R47.01 Aphasia (principal); E78.5 Hyperlipidemia, unspecified; F02.80 Dementia in other diseases classified elsewhere, unspecified severity, without behavioral disturbance, psychotic disturbance, mood disturbance, and anxiety; G30.9 Alzheimer's disease, unspecified; R47.1 Dysarthria and anarthria; Z53.21 Procedure and treatment not carried out due to patient leaving prior to being seen by health care provider; Z79.82 Long term (current) use of aspirin; Z86.718 Personal history of other venous thrombosis and embolism; Z88.8 Allergy status to other drugs, medicaments and biological substances
CPT/HCPCS: 36415; 70450; 70496; 70498; 71046; 80048; 80053; 80061; 82550; 83036; 83735; 84443; 84484; 85025; 85027; 85610; 85730; 93005; 99285